=== PATIENT | male | born 1960 | race Caucasian/White ===

== ENCOUNTER → 2016-07-19 | Outpatient (CLI) | payer MEDICARE ==
--- OUTSIDE RECORDS SUMMARY | 2016-07-19 11:24 | XMS REPORT | Continuity of Care Document ---
Author Author [facility] Address Unknown Phone Unavailable Allergies Active Description Code Type Severity Reaction Onset Reported/Identified Relationship to Patient Clinical Status Yes cortisone Drug Allergy N/A N/A 02/07/2010 Yes gabapentin Drug Allergy N/A N/A 11/30/2013 Medications Problems Date Dx Coded Attending Type Code Diagnosis Diagnosed By 02/22/2008 FLETCHER DO, CHERIE K 780.79 MALAISE AND FATIGUE 02/22/2008 FLETCHER DO, CHERIE K 780.79 MALAISE AND FATIGUE 02/22/2008 FLETCHER DO, CHERIE K 780.79 MALAISE AND FATIGUE 02/22/2008 FLETCHER DO, CHERIE K 780.79 MALAISE AND FATIGUE 02/22/2008 FLETCHER DO, CHERIE K 780.79 MALAISE AND FATIGUE 02/07/2010 FLETCHER DO, CHERIE K 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 02/07/2010 FLETCHER DO, CHERIE K 723.1 CERVICALGIA 02/07/2010 FLETCHER DO, CHERIE K 786.50 CHEST PAIN, UNSPECIFIED 02/07/2010 FLETCHER DO, CHERIE K 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 02/07/2010 FLETCHER DO, CHERIE K 723.1 CERVICALGIA 02/07/2010 FLETCHER DO, CHERIE K 786.50 CHEST PAIN, UNSPECIFIED 02/07/2010 FLETCHER DO, CHERIE K 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 02/07/2010 FLETCHER DO, CHERIE K 723.1 CERVICALGIA 02/07/2010 FLETCHER DO, CHERIE K 786.50 CHEST PAIN, UNSPECIFIED 02/07/2010 FLETCHER DO, CHERIE K 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 02/07/2010 FLETCHER DO, CHERIE K 723.1 CERVICALGIA 02/07/2010 FLETCHER DO, CHERIE K 786.50 CHEST PAIN, UNSPECIFIED 02/07/2010 FLETCHER DO, CHERIE K 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9 UNSPECIFIED ESSENTIAL HYPERTENSION 08/13/2011 FLETCHER DO, CHERIE K 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 08/13/2011 FLETCHER DO, CHERIE K 272.4 OTHER AND UNSPECIFIED HYPERLIPIDEMIA 08/13/2011 FLETCHER DO, CHERIE K 305.1 NONDEPENDENT TOBACCO USE DISORDER 08/13/2011 FLETCHER DO, CHERIE K 401.9 UNSPECIFIED ESSENTIAL HYPERTENSION 08/13/2011 FLETCHER DO, CHERIE K 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 08/13/2011 FLETCHER DO, CHERIE K 272.4 OTHER AND UNSPECIFIED HYPERLIPIDEMIA 08/13/2011 FLETCHER DO, CHERIE K 305.1 NONDEPENDENT TOBACCO USE DISORDER 08/13/2011 FLETCHER DO, CHERIE K 401.9 UNSPECIFIED ESSENTIAL HYPERTENSION 08/13/2011 FLETCHER DO, CHERIE K 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 08/13/2011 FLETCHER DO, CHERIE K 272.4 OTHER AND UNSPECIFIED HYPERLIPIDEMIA 08/13/2011 FLETCHER DO, CHERIE K 305.1 NONDEPENDENT TOBACCO USE DISORDER 08/13/2011 FLETCHER DO, CHERIE K 401.9 UNSPECIFIED ESSENTIAL HYPERTENSION 08/13/2011 FLETCHER DO, CHERIE K 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 08/27/2011 FLETCHER DO, CHERIE K 790.29 OTHER ABNORMAL GLUCOSE 08/27/2011 FLETCHER DO, CHERIE K V76.51 SPECIAL SCREENING FOR MALIGNANT NEOPLASMS COLON 08/27/2011 FLETCHER DO, CHERIE K 790.29 OTHER ABNORMAL GLUCOSE 08/27/2011 FLETCHER DO, CHERIE K V76.51 SPECIAL SCREENING FOR MALIGNANT NEOPLASMS COLON 08/27/2011 FLETCHER DO, CHERIE K 790.29 OTHER ABNORMAL GLUCOSE 08/27/2011 FLETCHER DO, CHERIE K V76.51 SPECIAL SCREENING FOR MALIGNANT NEOPLASMS COLON 08/27/2011 FLETCHER DO, CHERIE K 790.29 OTHER ABNORMAL GLUCOSE 08/27/2011 FLETCHER DO, CHERIE K V76.51 SPECIAL SCREENING FOR MALIGNANT NEOPLASMS COLON 08/27/2011 FLETCHER DO, CHERIE K 790.29 OTHER ABNORMAL GLUCOSE 08/27/2011 FLETCHER DO, CHERIE K V76.51 SPECIAL SCREENING FOR MALIGNANT NEOPLASMS COLON 04/20/2013 FLETCHER DO, CHERIE K 466.0 BRONCHITIS, ACUTE 04/20/2013 FLETCHER DO, CHERIE K 466.0 BRONCHITIS, ACUTE 04/20/2013 FLETCHER DO, CHERIE K 466.0 BRONCHITIS, ACUTE 04/20/2013 FLETCHER DO, CHERIE K 466.0 BRONCHITIS, ACUTE 04/20/2013 FLETCHER DO, CHERIE K 466.0 BRONCHITIS, ACUTE 05/31/2013 FLETCHER DO, CHERIE K 401.1 HYPERTENSION, BENIGN ESSENTIAL 05/31/2013 FLETCHER DO, CHERIE K 401.1 HYPERTENSION, BENIGN ESSENTIAL 05/31/2013 FLETCHER DO, CHERIE K 401.1 HYPERTENSION, BENIGN ESSENTIAL 11/30/2013 FLETCHER DO, CHERIE K 716.90 ARTHRITIS/ ARTHROPATHY, UNSPECIFIED Procedures Results Encounters ACCT No. Visit Date/Time Discharge Status Pt. Type Provider Facility Loc./Unit Complaint [id number] 11/30/2013 10:11:00 11/30/2013 23: 59:59 CLS Outpatient FLETCHER DO CHERIE K [id number] 06/28/2013 09:22:00 06/28/2013 23: 59:59 CLS Outpatient FLETCHER DO CHERIE K [id number] 05/31/2013 11:24:00 05/31/2013 23: 59:59 CLS Outpatient FLETCHER DO CHERIE K [id number] 04/29/2013 14:27:00 04/29/2013 23: 59:59 CLS Outpatient FLETCHER DO CHERIE K [id number] 04/20/2013 08:51:00 04/20/2013 23: 59:59 CLS Outpatient FLETCHER DO, CHERIE K
--- NOTE | 2016-07-19 17:10 | Diagnostic Imaging Report ---
INDICATION: Chronic lower back pain radiating down left leg. No known trauma. TECHNIQUE: AP, Lateral and Spot imaging of the lumbar spine CORRELATION STUDY: None FINDINGS: Very mild straightening of lumbar lordotic curvature. Lumbar vertebral body heights overall are maintained. Slight irregular sclerosis and osteophyte formation at superior L4 and L5 endplates. Very mild asymmetric disc space narrowing at L5-S1 level. Mild vascular calcifications of the visualized abdominal aorta. IMPRESSION: Mild lower lumbar spine degenerative changes suggested at L5-S1 level. Given symptoms, if further assessment is desired, MRI would be recommended. Dictated by: Dictated on workstation # [id number]
== END ==
LOC: RAD 11:18
PROVIDERS: ATTEND Nurse Practitioner Family
DX: M54.42 Lumbago with sciatica, left side (principal)
CPT/HCPCS: 72100